=== PATIENT | male | born 1985 | race Two or more races ===

== ENCOUNTER 2020-05-12 18:36 | Emergency (ER) | payer SELFPAY ==
[2020-05-12] MEDS ORDERED: Ketorolac 30 MG/ML SDV IVPUSH ONE (19:27)
[2020-05-12] MEDS ORDERED: Ondansetron 4 MG/2 ML SDV IVPUSH ONE (19:27)
[2020-05-12] MEDS ORDERED: Sodium Chloride 0.9% 1,000 ML IV ONE (19:27)
[2020-05-12 20:22] LABS: BLOOD UREA NITROGEN,BUN 14 mg/dL (7.0-18.0); CARBON DIOXIDE,CO2 29.6 mmol/L (21.0-32.0); CHLORIDE,CL 103 mmol/L (98-107); GLUCOSE RANDOM 104 mg/dL (74-106); LIPASE 101 U/L (73-393); POTASSIUM,K 3.7 mmol/L (3.5-5.1); SODIUM,NA 139 mmol/L (136-148)
--- NOTE | 2020-05-12 20:37 | CT ---
Indication: Right flank pain Technique: Nonenhanced axial CT imaging through the abdomen and pelvis. Sagittal and coronal reconstructions are provided. Comparison: None Findings: There is normal renal parenchymal attenuation without hydronephrosis. No stones are seen in the renal collecting systems, ureters, or urinary bladder. There is unremarkable noncontrast appearance of the liver, gallbladder, spleen, pancreas, and adrenal glands. There is no abdominal lymphadenopathy. There is normal caliber of the abdominal aorta. The stomach and duodenum are unremarkable. There are no abnormally dilated small bowel loops. The appendix is nonvisualized. There is no colonic wall thickening. There is no mesenteric edema or intraperitoneal free fluid. The osseous structures are unremarkable. The included lung bases are clear. Impression: No acute process demonstrated in the abdomen and pelvis. No nephrolithiasis or urinary obstruction. Please note that all CT scans at this facility use dose modulation, iterative reconstruction, and/or weight-based dosing when appropriate to reduce radiation dose to as low as reasonably achievable. Dictated by Juanita Eden MD @ May 12 2020 8:30PM Signed by Dr. Juanita Eden @ May 12 2020 8:35PM
[2020-05-12] MEDS ORDERED: cefTRIAXone 1 GM Vial IM ONE (21:04)
--- NOTE | 2020-05-12 21:20 | EDM.PDOC ---
ED HPI GENERAL MEDICAL PROBLEM - General Chief Complaint: Back Pain or Injury Stated Complaint: LOWER BACK PAIN Time Seen by Provider: 05/12/20 18:57 Source of Information: Reports: Patient History Limitations: Reports: Language Barrier ([employer] therapy tech used) - History of Present Illness INITIAL COMMENTS - FREE TEXT/NARRATIVE: HISTORY AND PHYSICAL: History of present illness: Patient is a 35-year-old male who presents to the ED today with concern of right-sided flank/back pain that started this morning. Patient states that he did not injure his back that he is aware of and states that he woke up with discomfort of the area over "his right kidney". Patient denies any health history. Patient states he has not taken anything for his symptoms. Patient denies any associative symptoms along with his right flank/back pain. Patient denies fever, chills, chest pain, shortness of breath, or cough. Denies headache, neck stiff ness, change in vision, syncope, or near syncope. Denies nausea, vomiting, abdominal pain, diarrhea, constipation, or dysuria. Has not noted any blood in urine or stool. Patient has been eating and drinking appropriately. Review of systems: As per history of present illness and below otherwise all systems reviewed and negative. Past medical history: As per history of present illness and as reviewed below otherwise noncontributory. Surgical history: As per history of present illness and as reviewed below otherwise noncontributory. Social history: See social history for further information Family history: As per history of present illness and as reviewed below otherwise noncontributory. Physical exam: General: Patient is alert, oriented, and in no acute distress. Patient sitting comfortably on exam table. Patient is febrile 101.1 on exam otherwise vitally stable. HR 90s on my exam. HEENT: Atraumatic, normocephalic, pupils equal and reactive bilaterally, negative for conjunctival pallor or scleral icterus, mucous membranes moist, TMs normal bilaterally, throat clear, neck supple, nontender, trachea midline. No drooling or trismus noted. No meningeal signs. No hot potato voice noted. Lungs: Clear to auscultation, breath sounds equal bilaterally, chest nontender. Heart: S1S2, regular rate and rhythm without overt murmur Abdomen: Soft, nondistended, nontender. Negative for masses or hepatosplenomegaly. Positive for costovertebral tenderness. Pelvis: Stable nontender. Genitourinary: Deferred. Rectal: Deferred. Skin: Intact, warm, dry. No lesions or rashes noted. Extremities: Atraumatic, negative for cords or calf pain. Neurovascular unremarkable. Neuro: Awake, alert, oriented. Cranial nerves II through XII unremarkable. Cerebellum unremarkable. Motor and sensory unremarkable throughout. Exam nonfocal. Notes: Dr. Bunn verbally involved in patient care. Patient does have CVA tenderness of the right flank area and febrile on exam. Patient is hesitant to perform labwork, UA, and imaging as he desires not to stay in the ED very long as he would like to go home and sleep, but he is agreeable after through discussion about risks vs benefits. Patient declines COVID19 testing today. Admission for observation was offered to patient but he declines at this time requesting to be discharged immediately from ED. Agreeable to leaving AMA. All risks vs benefits discussed with patient and expresses understanding. Signs and symptoms that would prompt return to the ED thoroughly discussed with patient. Discussed importance for follow-up with a primary care provider. Diagnostics: CBC, CMP, UA w cult, lipase, abd/pelvic ct scan, lactate, blood cultures x 2 (Patient declines COVID19 testing) Therapeutics: Rocephin, Toradol, Zofran, NS Prescription: Keflex Impression: Right flank pain Fever of unknown origin Left against medical advice Plan: 1. Take medication as prescribed. You can alternate ibuprofen and Tylenol as directed for pain and discomfort. 2. Follow-up with a primary care provider as discussed. Return to the ED as needed and as discussed. Definitive disposition and diagnosis as appropriate pending reevaluation and review of above. Right Lower Back Pain Score (Numeric/FACES): 5 - Related Data Allergies Allergy/AdvReac Type Severity Reaction Status Date / Time No Known Allergies Allergy Verified 05/12/20 18:56 Home Meds: Home Meds cephALEXin [Keflex] 500 mg PO QID 14 Days #56 cap 05/12/20 [Rx] Past Medical History - Past Health History Medical/Surgical History: Denies Medical/Surgical History - Infectious Disease History Infectious Disease History: Reports: Other (See Below) Other Infectious Disease History: smallpox Social & Family History - Tobacco Use Tobacco Use Status *Q: Current Every Day Tobacco User Years of Tobacco use: 15 Packs/Tins Daily: 0.1 - Caffeine Use Caffeine Use: Reports: Coffee - Recreational Drug Use Recreational Drug Use: No ED ROS GENERAL - Review of Systems Review Of Systems: Comprehensive ROS is negative, except as noted in HPI. ED EXAM, GENERAL - Physical Exam Exam: See Below (see dictation) Course - Vital Signs Last Recorded V/S: Last Vital Signs Temp 101.1 F H 05/12/20 19:28 Pulse 99 05/12/20 21:05 Resp 18 05/12/20 18:57 BP 124/68 05/12/20 21:05 Pulse Ox 100 05/12/20 21:05 - Orders/Labs/Meds Orders: Active Orders 24 hr Category Date Time Status CORONAVIRUS COVID-19 PCR PHL Stat Lab 05/12/20 20:16 Ordered CULTURE BLOOD [BC] Stat Lab 05/12/20 20:15 Received CULTURE BLOOD [BC] Stat Lab 05/12/20 20:25 Received CULTURE URINE [RM] Stat Lab 05/12/20 19:04 Received Blood Culture x2 Reflex Set [OM.PC] Stat Oth 05/12/20 19:28 Ordered Labs: Laboratory Tests 05/12/20 05/12/20 05/12/20 Range/Units 19:04 19:33 19:33 WBC 4.71 (4.0-11.0) K/uL RBC 5.06 (4.50-5.90) M/uL Hgb 15.9 (13.0-17.0) g/dL Hct 45.0 (38.0-50.0) % MCV 88.9 (80.0-98.0) fL MCH 31.4 (27.0-32.0) pg MCHC 35.3 (31.0-37.0) g/dL RDW Std Deviation 39.9 (28.0-62.0) fl RDW Coeff of [place] 13 (11.0-15.0) % Plt Count 177 (150-400) K/uL MPV 10.40 (7.40-12.00) fL Neut % (Auto) 66.2 (48.0-80.0) % Lymph % (Auto) 22.5 (16.0-40.0) % [place] % (Auto) 9.8 (0.0-15.0) % Eos % (Auto) 1.5 (0.0-7.0) % Baso % (Auto) 0.0 (0.0-1.5) % Neut # (Auto) 3.1 (1.4-5.7) K/uL Lymph # (Auto) 1.1 (0.6-2.4) K/uL [place] # (Auto) 0.5 (0.0-0.8) K/uL Eos # (Auto) 0.1 (0.0-0.7) K/uL Baso # (Auto) 0.0 (0.0-0.1) K/uL Nucleated RBC % 0.0 /100WBC Nucleated RBCs # 0 K/uL Lactate (0.20-2.00) mmol/L Sodium 139 (136-148) mmol/L Potassium 3.7 (3.5-5.1) mmol/L Chloride 103 (98-107) mmol/L Carbon Dioxide 29.6 (21.0-32.0) mmol/L BUN 14 (7.0-18.0) mg/dL Creatinine 1.2 (0.8-1.3) mg/dL Est Cr Clr Drug Dosing 82.78 mL/min Estimated GFR (MDRD) > 60.0 ml/min Glucose 104 (74-106) mg/dL Calcium 9.1 (8.5-10.1) mg/dL Total Bilirubin 0.5 (0.2-1.0) mg/dL AST 23 (15-37) IU/L ALT 30 (14-63) IU/L Alkaline Phosphatase 67 (46-116) U/L Total Protein 7.7 (6.4-8.2) g/dL Albumin 4.5 (3.4-5.0) g/dL Globulin 3.2 (2.6-4.0) g/dL Albumin/Globulin Ratio 1.4 (0.9-1.6) Lipase 101 (73-393) U/L Urine Color YELLOW Urine Appearance CLEAR Urine pH 7.5 (5.0-8.0) Ur Specific [place] 1.025 (1.001-1.035) Urine Protein NEGATIVE (NEGATIVE) mg/dL Urine Glucose (UA) NEGATIVE (NEGATIVE) mg/dL Urine Ketones NEGATIVE (NEGATIVE) mg/dL Urine Occult Blood NEGATIVE (NEGATIVE) Urine Nitrite NEGATIVE (NEGATIVE) Urine Bilirubin NEGATIVE (NEGATIVE) Urine Urobilinogen 0.2 (<2.0) EU/dL Ur Leukocyte Esterase TRACE H (NEGATIVE) Urine RBC 0-1 (0-2/HPF) Urine WBC 0-1 (0-5/HPF) Ur Epithelial Cells RARE (NONE-FEW) Urine Bacteria RARE (NEGATIVE) 05/12/20 Range/Units 19:33 WBC (4.0-11.0) K/uL RBC (4.50-5.90) M/uL Hgb (13.0-17.0) g/dL Hct (38.0-50.0) % MCV (80.0-98.0) fL MCH (27.0-32.0) pg MCHC (31.0-37.0) g/dL RDW Std Deviation (28.0-62.0) fl RDW Coeff of [place] (11.0-15.0) % Plt Count (150-400) K/uL MPV (7.40-12.00) fL Neut % (Auto) (48.0-80.0) % Lymph % (Auto) (16.0-40.0) % [place] % (Auto) (0.0-15.0) % Eos % (Auto) (0.0-7.0) % Baso % (Auto) (0.0-1.5) % Neut # (Auto) (1.4-5.7) K/uL Lymph # (Auto) (0.6-2.4) K/uL [place] # (Auto) (0.0-0.8) K/uL Eos # (Auto) (0.0-0.7) K/uL Baso # (Auto) (0.0-0.1) K/uL Nucleated RBC % /100WBC Nucleated RBCs # K/uL Lactate 0.6 (0.20-2.00) mmol/L Sodium (136-148) mmol/L Potassium (3.5-5.1) mmol/L Chloride (98-107) mmol/L Carbon Dioxide (21.0-32.0) mmol/L BUN (7.0-18.0) mg/dL Creatinine (0.8-1.3) mg/dL Est Cr Clr Drug Dosing mL/min Estimated GFR (MDRD) ml/min Glucose (74-106) mg/dL Calcium (8.5-10.1) mg/dL Total Bilirubin (0.2-1.0) mg/dL AST (15-37) IU/L ALT (14-63) IU/L Alkaline Phosphatase (46-116) U/L Total Protein (6.4-8.2) g/dL Albumin (3.4-5.0) g/dL Globulin (2.6-4.0) g/dL Albumin/Globulin Ratio (0.9-1.6) Lipase (73-393) U/L Urine Color Urine Appearance Urine pH (5.0-8.0) Ur Specific [place] (1.001-1.035) Urine Protein (NEGATIVE) mg/dL Urine Glucose (UA) (NEGATIVE) mg/dL Urine Ketones (NEGATIVE) mg/dL Urine Occult Blood (NEGATIVE) Urine Nitrite (NEGATIVE) Urine Bilirubin (NEGATIVE) Urine Urobilinogen (<2.0) EU/dL Ur Leukocyte Esterase (NEGATIVE) Urine RBC (0-2/HPF) Urine WBC (0-5/HPF) Ur Epithelial Cells (NONE-FEW) Urine Bacteria (NEGATIVE) Meds: Medications Discontinued Medications Generic Name Dose Route Start Last Admin Trade Name Freq PRN Reason Stop Dose Admin Ceftriaxone Sodium 1 gm 05/12/20 21:04 05/12/20 21:20 Rocephin IM 05/12/20 21:05 1 gm ONETIME ONE Administration Sodium Chloride 1,000 mls @ 999 mls/hr 05/12/20 19:27 05/12/20 19:57 Normal Saline IV 05/12/20 20:27 999 mls/hr BOLUS ONE Administration Ketorolac Tromethamine 30 mg 05/12/20 19:27 05/12/20 20:00 Toradol IVPUSH 05/12/20 19:28 30 mg ONETIME ONE Administration Ondansetron HCl 4 mg 05/12/20 19:27 05/12/20 19:59 Zofran IVPUSH 05/12/20 19:28 4 mg ONETIME ONE Administration Departure - Departure Time of Disposition: 21:20 Disposition: Against Medical Advice 07 Clinical Impression: Fever of unknown origin, Right flank pain, Left against medical advice - Discharge Information Prescriptions: cephALEXin [Keflex] 500 mg PO QID 14 Days #56 cap Referrals: PCP,None [Primary Care Provider] - Forms: ED Department Discharge Additional Instructions: The following information is given to patients seen in the emergency department who are being discharged to home. This information is to outline your options for follow-up care. We provide all patients seen in our emergency department with a follow-up referral. The need for follow-up, as well as the timing and circumstances, are variable depending upon the specifics of your emergency department visit. If you don't have a primary care physician on staff, we will provide you with a referral. We always advise you to contact your personal physician following an emergency department visit to inform them of the circumstance of the visit and for follow-up with them and/or the need for any referrals to a consulting specialist. The emergency department will also refer you to a specialist when appropriate. This referral assures that you have the opportunity for follow-up care with a specialist. All of these measure are taken in an effort to provide you with optimal care, which includes your follow-up. Under all circumstances we always encourage you to contact your private physician who remains a resource for coordinating your care. When calling for follow-up care, please make the office aware that this follow-up is from your recent emergency room visit. If for any reason you are refused follow-up, please contact the [facility] Emergency Department at and asked to speak to the emergency department charge nurse. [facility] [address] [place] [address] [place] [address] 1. Take medication as prescribed. You can alternate ibuprofen and Tylenol as directed for pain and discomfort. 2. Follow-up with a primary care provider as discussed. Return to the ED as needed and as discussed. Sepsis Event Note (ED) - Evaluation Sepsis Screening Result: Possible Sepsis Risk - My Orders Last 24 Hours: My Active Orders 05/12/20 19:04 CULTURE URINE [RM] Stat 05/12/20 19:28 Blood Culture x2 Reflex Set [OM.PC] Stat 05/12/20 20:15 CULTURE BLOOD [BC] Stat 05/12/20 20:16 CORONAVIRUS COVID-19 PCR PHL Stat 05/12/20 20:25 CULTURE BLOOD [BC] Stat - Assessment/Plan Last 24 Hours: My Active Orders 05/12/20 19:04 CULTURE URINE [RM] Stat 05/12/20 19:28 Blood Culture x2 Reflex Set [OM.PC] Stat 05/12/20 20:15 CULTURE BLOOD [BC] Stat 05/12/20 20:16 CORONAVIRUS COVID-19 PCR PHL Stat 05/12/20 20:25 CULTURE BLOOD [BC] Stat
== END 2020-05-12 21:28 | disposition left against medical advice (07) ==
LOC: MW.ED 18:36
DX: R10.9 Unspecified abdominal pain (principal); R50.9 Fever, unspecified; F17.210 Nicotine dependence, cigarettes, uncomplicated
CPT/HCPCS: 36415; 74176; 80053; 81001; 83605; 83690; 85025; 87040; 87086; 96372; 96374; 96375; 99284; J0696; J1885; J2405; J7030

== ENCOUNTER 2023-06-27 11:20 | Emergency (ER) | payer SELFPAY ==
[2023-06-27] MEDS ORDERED: Sodium Chloride 0.9% 10 ML Syringe FLUSH PRN (11:42)
[2023-06-27] MEDS ORDERED: Sodium Chloride 0.9% 2.5 ML Syringe FLUSH PRN (11:42)
[2023-06-27 11:49] LABS: BASOPHILS ABSOLUTE AUTO 0.02 K/uL (0.00-0.20); BASOPHILS PERCENT AUTO 0.4 % (0.0-1.0); EOSINOPHILS ABSOLUTE AUTO 0.19 K/uL (0.00-0.45); EOSINOPHILS PERCENT AUTO 3.5 % (0.0-6.0); HEMATOCRIT 44.5 % (42.0-52.0); HEMOGLOBIN 16.5 g/dL (14.0-18.0); IMMATURE GRAN ABSOLUTE AUTO 0.02 K/uL (0.00-0.05); IMMATURE GRAN PERCENT AUTO 0.4 % (0.0-0.4); LYMPHOCYTES ABSOLUTE AUTO 2.11 K/uL (1.00-4.80); LYMPHOCYTES PERCENT AUTO 38.6 % (24.0-44.0); MEAN CORPUSCULAR HEMOGLOBIN 31.8 pg (28.0-32.0); MEAN CORPUSCULAR HGB CONC 37.1 g/dL (32.0-36.0); MEAN CORPUSCULAR VOLUME 85.7 fL (83.0-99.0); MEAN PLATELET VOLUME 9.7 fL (9.4-12.4); MONOCYTES ABSOLUTE AUTO 0.42 K/uL (0.00-0.80); MONOCYTES PERCENT AUTO 7.7 % (0.0-8.0); NEUTROPHILS PERCENT AUTO 49.4 % (41.0-71.0); PLATELET COUNT,PLT 210 K/uL (150-400); RED BLOOD CELL COUNT 5.19 M/uL (4.52-5.90); WHITE BLOOD CELL COUNT,WBC 5.46 K/uL (3.9-11.3)
[2023-06-27] MEDS ORDERED: Aluminum Hydroxide/Magnesium Hydroxide/Simethicone XS Susp 30 ML Cup PO ONE (11:51)
[2023-06-27 12:15] LABS: A/G RATIO 1.5 (0.9-1.6); ALBUMIN 4.3 g/dL (3.4-5.0); BILIRUBIN TOTAL 0.7 mg/dL (0.2-1.0); CALCIUM 9.2 mg/dL (8.5-10.1); CARBON DIOXIDE,CO2 27.4 mmol/L (21.0-32.0); EST CRCL DRUG DOSING (CG) 110.94 mL/min; POTASSIUM,K 4.1 mmol/L (3.5-5.1); PROTEIN TOTAL,TP 7.2 g/dL (6.4-8.2)
== END 2023-06-27 12:56 | disposition home or self-care (01) ==
LOC: MW.ED 11:20
DX: R10.11 Right upper quadrant pain (principal); R10.13 Epigastric pain
CPT/HCPCS: 36415; 80053; 83690; 84484; 85025; 93005; 99284; A9270; J3490

== ENCOUNTER 2024-09-18 02:04 | Emergency (ER) | payer SELFPAY ==
[2024-09-18] MEDS ORDERED: Sodium Chloride 0.9% 20 ML SDV IV PRN (02:17)
[2024-09-18] MEDS: Famotidine 20 MG/2 ML SDV IVPUSH ONE (02:22)
[2024-09-18 02:23] LABS: BASOPHILS ABSOLUTE AUTO 0.02 K/uL (0.00-0.20); BASOPHILS PERCENT AUTO 0.2 % (0.0-1.0); EOSINOPHILS ABSOLUTE AUTO 0.11 K/uL (0.00-0.45); EOSINOPHILS PERCENT AUTO 1.1 % (0.0-6.0); HEMATOCRIT 40.5 % (42.0-52.0); HEMOGLOBIN 14.9 g/dL (14.0-18.0); IMMATURE GRAN ABSOLUTE AUTO 0.03 K/uL (0.00-0.05); IMMATURE GRAN PERCENT AUTO 0.3 % (0.0-0.4); LYMPHOCYTES ABSOLUTE AUTO 1.99 K/uL (1.00-4.80); LYMPHOCYTES PERCENT AUTO 20.7 % (24.0-44.0); MEAN CORPUSCULAR HEMOGLOBIN 31.6 pg (28.0-32.0); MEAN CORPUSCULAR HGB CONC 36.8 g/dL (32.0-36.0); MEAN CORPUSCULAR VOLUME 85.8 fL (83.0-99.0); MEAN PLATELET VOLUME 10.1 fL (9.4-12.4); MONOCYTES ABSOLUTE AUTO 0.73 K/uL (0.00-0.80); MONOCYTES PERCENT AUTO 7.6 % (0.0-8.0); NEUTROPHILS ABSOLUTE AUTO 6.75 K/uL (1.80-7.70); NEUTROPHILS PERCENT AUTO 70.1 % (41.0-71.0); PLATELET COUNT,PLT 214 K/uL (150-400); RED BLOOD CELL COUNT 4.72 M/uL (4.52-5.90); WHITE BLOOD CELL COUNT,WBC 9.63 K/uL (3.9-11.3)
[2024-09-18] MEDS: Ondansetron 4 MG/2 ML SDV IVPUSH ONE (02:24)
[2024-09-18] MEDS: Alum Hydrox/Mag Hydrox/Simeth 15 ML, Lidocaine 2% 5 ML PO ONE (02:25)
[2024-09-18] MEDS: Sodium Chloride 0.9% 10 ML Syringe FLUSH PRN (02:25)
[2024-09-18] MEDS: Sodium Chloride 0.9% 2.5 ML Syringe FLUSH PRN (02:25)
[2024-09-18] MEDS: chlorproMAZINE 50 MG/2 ML Amp IM ONE (02:31)
[2024-09-18 02:58] LABS: A/G RATIO 1.7 (0.9-1.6); ALANINE AMINOTRANSFERASE,ALT 35 IU/L (14-63); ALBUMIN 4.3 g/dL (3.4-5.0); ALKALINE PHOSPHATASE 54 U/L (46-116); ASPARTATE AMNIOTRANSFERASE,AST 19 IU/L (15-37); BILIRUBIN TOTAL 1.6 mg/dL (0.2-1.0); BLOOD UREA NITROGEN,BUN 18 mg/dL (7.0-18.0); CALCIUM 8.9 mg/dL (8.5-10.1); CARBON DIOXIDE,CO2 26.2 mmol/L (21.0-32.0); CHLORIDE,CL 103 mmol/L (98-107); CREATININE 1.1 mg/dL (0.8-1.3); EST CRCL DRUG DOSING (CG) 82.97 mL/min; GLUCOSE RANDOM 113 mg/dL (74-106); LIPASE 32 U/L (16-77); POTASSIUM,K 3.6 mmol/L (3.5-5.1); PROTEIN TOTAL,TP 6.9 g/dL (6.4-8.2); SODIUM,NA 141 mmol/L (136-148)
[2024-09-18 03:02] LABS: ESTIMATED GFR 89 mL/min (>60)
[2024-09-18 03:16] LABS: APPEARANCE,URINE CLEAR; BILIRUBIN,URINE NEGATIVE (NEGATIVE); COLOR,URINE YELLOW; GLUCOSE,URINE NEGATIVE (NEGATIVE); KETONES,URINE TRACE mg/dL (NEGATIVE); LEUKOCYTE ESTERASE,URINE NEGATIVE (NEGATIVE); NITRITE,URINE NEGATIVE (NEGATIVE); OCCULT BLOOD,URINE NEGATIVE (NEGATIVE); PROTEIN,URINE NEGATIVE (NEGATIVE); UROBILINOGEN,URINE 0.2 EU/dL (<2.0)
[2024-09-18 03:26] LABS: AMPHETAMINES SCREEN, URINE NEGATIVE (CUTOFF=500); BARBITURATE SCREEN,URINE NEGATIVE (CUTOFF=200); BENZODIAZEPINES SCREEN,URINE NEGATIVE (CUTOFF=150); BUPRENORPHINE SCREEN,URINE NEGATIVE (CUTOFF=10); METHADONE SCREEN, URINE NEGATIVE (CUTOFF=200); METHAMPHETAMINES SCREEN, URINE NEGATIVE (CUTOFF=500); OXYCODONE SCREEN,URINE NEGATIVE (CUT0FF=100); PCP SCREEN,URINE NEGATIVE (CUTOFF=25); THC SCREEN,URINE 20 NG/ML NEGATIVE (CUTOFF=50)
[2024-09-18] MEDS: Morphine 4 MG/ML Syringe IVPUSH ONE (03:54)
== END 2024-09-18 04:07 | disposition home or self-care (01) ==
LOC: MW.ED 02:04
DX: K29.70 Gastritis, unspecified, without bleeding (principal); K21.9 Gastro-esophageal reflux disease without esophagitis; Z79.899 Other long term (current) drug therapy
CPT/HCPCS: 36415; 80053; 80305; 81003; 83690; 84484; 85025; 93005; 96372; 96374; 96375; 99284; A9270; J2270; J3230; 93010

== ENCOUNTER 2024-09-19 02:20 | Day surgery (SDC) | payer SELFPAY ==
[2024-09-19 02:43] LABS: BASOPHILS ABSOLUTE AUTO 0.01 K/uL (0.00-0.20); BASOPHILS PERCENT AUTO 0.1 % (0.0-1.0); EOSINOPHILS ABSOLUTE AUTO 0.02 K/uL (0.00-0.45); EOSINOPHILS PERCENT AUTO 0.2 % (0.0-6.0); HEMATOCRIT 40.5 % (42.0-52.0); HEMOGLOBIN 14.6 g/dL (14.0-18.0); IMMATURE GRAN ABSOLUTE AUTO 0.04 K/uL (0.00-0.05); IMMATURE GRAN PERCENT AUTO 0.3 % (0.0-0.4); LYMPHOCYTES ABSOLUTE AUTO 1.38 K/uL (1.00-4.80); LYMPHOCYTES PERCENT AUTO 10.6 % (24.0-44.0); MEAN CORPUSCULAR HEMOGLOBIN 31.1 pg (28.0-32.0); MEAN CORPUSCULAR VOLUME 86.2 fL (83.0-99.0); MEAN PLATELET VOLUME 10.1 fL (9.4-12.4); MONOCYTES ABSOLUTE AUTO 0.96 K/uL (0.00-0.80); MONOCYTES PERCENT AUTO 7.4 % (0.0-8.0); NEUTROPHILS ABSOLUTE AUTO 10.59 K/uL (1.80-7.70); NEUTROPHILS PERCENT AUTO 81.4 % (41.0-71.0); PLATELET COUNT,PLT 198 K/uL (150-400)
[2024-09-19] MEDS: Ketorolac 30 MG/ML SDV IVPUSH ONE (02:45)
[2024-09-19 03:08] LABS: A/G RATIO 1.3 (0.9-1.6); ALANINE AMINOTRANSFERASE,ALT 19 IU/L (14-63); ALBUMIN 3.9 g/dL (3.4-5.0); ALKALINE PHOSPHATASE 55 U/L (46-116); ASPARTATE AMNIOTRANSFERASE,AST 23 IU/L (15-37); BILIRUBIN TOTAL 1.6 mg/dL (0.2-1.0); BLOOD UREA NITROGEN,BUN 14 mg/dL (7.0-18.0); CALCIUM 8.8 mg/dL (8.5-10.1); CHLORIDE,CL 101 mmol/L (98-107); GLUCOSE RANDOM 115 mg/dL (74-106); LIPASE 30 U/L (16-77); POTASSIUM,K 3.5 mmol/L (3.5-5.1); PROTEIN TOTAL,TP 6.8 g/dL (6.4-8.2); SODIUM,NA 136 mmol/L (136-148)
[2024-09-19 03:20] LABS: ESTIMATED GFR 99 mL/min (>60)
[2024-09-19] MEDS: metroNIDAZOLE/Normal Saline 500 MG in Premix Bag 1 BAG IV ONE (03:55)
[2024-09-19] MEDS: metroNIDAZOLE/Normal Saline 100 ML ONE (03:57)
[2024-09-19] MEDS: Sodium Chloride 0.9% 1,000 ML IV SCH (03:59)
[2024-09-19] MEDS: Levofloxacin/Dextrose 5%-Water 500 MG in Premix Bag 1 BAG IV ONE (04:24)
[2024-09-19 04:34] LABS: LACTIC ACID 0.6 mmol/L (0.4-2.0)
[2024-09-19] MEDS: Ondansetron 4 MG/2 ML SDV IVPUSH ONE (05:41)
[2024-09-19] MEDS: Morphine 4 MG/ML Syringe IVPUSH ONE (05:42)
[2024-09-19] MEDS ORDERED: Rocuronium Bromide 50 MG/5 ML Syringe ONE (07:02)
[2024-09-19] MEDS ORDERED: Lidocaine 2% 5 ML SDV ONE (07:02)
[2024-09-19] MEDS ORDERED: Morphine 10 MG/ML SDV ONE (07:02)
[2024-09-19] MEDS ORDERED: Dexamethasone 4 MG/ML 5 ML MDV ONE (07:02)
[2024-09-19] MEDS ORDERED: dexmedeTOMIDine HCl 200 MCG/2 ML SDV ONE (07:02)
[2024-09-19] MEDS ORDERED: Metoclopramide 10 MG/2 ML SDV ONE (07:02)
[2024-09-19] MEDS ORDERED: Sugammadex Sodium 200 MG/2 ML VIAL IV ONE (07:02)
[2024-09-19] MEDS ORDERED: fentaNYL 100 MCG/2 ML SDV ONE (07:02)
[2024-09-19] MEDS ORDERED: Ondansetron 4 MG/2 ML SDV ONE (07:02)
[2024-09-19] MEDS ORDERED: Magnesium Sulfate (4.06 MEQ/ML) 5 GM/10 ML SDV ONE (07:03)
[2024-09-19] MEDS ORDERED: propofoL 1,000 MG/100 ML 100 ML ONE (07:10)
[2024-09-19] MEDS ORDERED: Ropivacaine 0.5% 5 MG/ML 30 ML SDV ONE (07:11)
[2024-09-19] MEDS ORDERED: Bupivacaine 0.25% 30 ML SDV ONE (07:11)
[2024-09-19] MEDS ORDERED: Lidocaine 2% 11 ML Jelly Filled Syringe ONE (07:15)
[2024-09-19] MEDS ORDERED: ceFAZolin 1 GM Vial ONE (07:31)
[2024-09-19] MEDS ORDERED: Bupivacaine 0.5% 30 ML SDV ONE ×2 (07:31→08:39)
[2024-09-19] MEDS ORDERED: Phenylephrine HCl In 0.9% NaCl 1 MG/10 ML Syringe IVPUSH PRN (07:45)
[2024-09-19] MEDS ORDERED: Albuterol 0.083% 2.5 MG/3 ML Neb Soln NEB PRN (07:45)
[2024-09-19] MEDS ORDERED: Metoclopramide 10 MG/2 ML SDV IVPUSH PRN (07:45)
[2024-09-19] MEDS ORDERED: fentaNYL 50 MCG/ML SDV IVPUSH PRN (07:45)
[2024-09-19] MEDS ORDERED: Morphine 2 MG/ML SYRINGE IVPUSH PRN ×2 (07:45→11:20)
[2024-09-19] MEDS ORDERED: Naloxone 0.4 MG/ML SDV IVPUSH PRN (07:45)
[2024-09-19] MEDS ORDERED: Ondansetron 4 MG/2 ML SDV IVPUSH PRN (07:45)
[2024-09-19] MEDS ORDERED: HYDROmorphone 1 MG/ML Syringe ONE (08:38)
[2024-09-19] MEDS ORDERED: Scopalamine 1mg/3day Transdermal Patch ONE (08:40)
[2024-09-19] MEDS: Lactated Ringers 1,000 ML IV SCH (08:45)
[2024-09-19] MEDS ORDERED: Phenylephrine HCl In 0.9% NaCl 1 MG/10 ML Syringe ONE (10:02)
[2024-09-19] MEDS ORDERED: Acetaminophen/HYDROcodone 325-5 MG Tab PO PRN (11:19)
[2024-09-19] MEDS ORDERED: Lactated Ringers 1,000 ML IV SCH (11:30)
[2024-09-19] MEDS: HYDROmorphone 1 MG/ML Syringe IVPUSH PRN (11:40)
== END 2024-09-19 14:15 | disposition home or self-care (01) ==
LOC: MW.ED 02:20 → MW.SDS 09:01
PROVIDERS: ATTEND Surgery
DX: K35.33 Acute appendicitis with perforation, localized peritonitis, and gangrene, with abscess (principal); K38.8 Other specified diseases of appendix; K38.2 Diverticulum of appendix; D72.829 Elevated white blood cell count, unspecified
CPT/HCPCS: 36415; 44970; 74176; 80053; 83605; 83690; 85025; 87040; 96361; 96365; 96368; 96375; 99285; A9270; J0665; J0690; J0694; J1100; J1171; J1836; J1885; J1956; J2003; J2270; J2272; J2371; J2405; J2704; J2795; J3010; J3475; J7030; J7120; 00840; 64486; J2765; J3490